=== PATIENT | female | born 1985 | race African-American/Black ===

== ENCOUNTER 2021-07-09 21:30 | Emergency (ER) | payer BC ==
[2021-07-09 21:34] VITALS: BMI 32.1
[2021-07-09 23:21] VITALS: BP 106/65; PULSE 72; TEMP 97.9
== END 2021-07-09 23:31 | disposition home or self-care (01) ==
LOC: JER 21:30
DX: S93.491A Sprain of other ligament of right ankle, initial encounter (principal); W10.9XXA Fall (on) (from) unspecified stairs and steps, initial encounter
CPT/HCPCS: 73610-TC-RT-FY; 73630-TC-RT-FY; 99283-25